=== PATIENT | male | born 1985 | race American Indian/Alaskan Native ===

== ENCOUNTER 2021-04-02 16:36 | Emergency (ER) | payer OTHER ==
[2021-04-02 18:14] VITALS: BP 116/72
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
[2021-04-02] MEDS ORDERED: HYDROcodone/ACETAMINOPHEN 5-325 MG TAB PO ONE (22:28)
== END 2021-04-02 22:48 | disposition home or self-care (01) ==
LOC: ED 16:36
DX: S00.511A Abrasion of lip, initial encounter (principal); M25.551 Pain in right hip; Z79.899 Other long term (current) drug therapy; V87.7XXA Person injured in collision between other specified motor vehicles (traffic), initial encounter; Y93.89 Activity, other specified; Y92.488 Other paved roadways as the place of occurrence of the external cause; Y99.8 Other external cause status
CPT/HCPCS: 70450; 99284